=== PATIENT | male | born 1960 | race Caucasian/White ===

== ENCOUNTER → 2016-07-06 | Outpatient (CLI) | payer BC ==
[~2016-07-06] MED LIST: ATV/1 PO; DOCU-94 PO; GABA-112 PO; GLYC1SUP4 PR; IPRA1AER2 INH; NXM/40 PO; OXYC1TAB3 PO; SENN8.6T45 PO; TRIA3AER NAE
--- NOTE | 2016-07-06 15:38 | DIAGNOSTIC IMAGING REPORT ---
CHEST 2 VIEWS ROUTINE CLINICAL HISTORY: Persistent fatigue COMPARISON STUDY: 06/18/2013 FINDINGS: The cardiac and sternal contours remain stable. There is no focal pulmonary consolidation. There is no failure. There are no pleural effusions. There are surgical clips within left upper quadrant. There is a pectus excavatum deformity.[ IMPRESSION: No active disease in the chest. Electronically signed by: Emile Mota M.D. 07/06/2016 3:37 PM Dictated Date/Time: 07/06/2016 3:33 PM
[2016-07-06 17:21] LABS: BASO % 0.8 %; BASO ABS # 0.05 K/uL (0-0.2); COMPLETE YES; EOS % 3.3 %; HEMATOCRIT 43.6 % (42-52); LYMPH % 48.5 %; LYMPH ABS # 3.19 K/uL (1.2-3.4); MEAN CELL VOLUME 91.6 fL (80-100); MEAN CORPUSCULAR HEMOGLOBIN 31.1 pg (25-34); MEAN CORPUSCULAR HGB CONC 33.9 g/dl (32-36); MEAN PLATELET VOLUME 10.5 fL (7.4-10.4); MONO % 8.7 %; NEUT % 38.7 %; PLATELET COUNT 349 K/uL (130-400); RED BLOOD COUNT 4.76 M/uL (4.7-6.1); WHITE BLOOD COUNT 6.58 K/uL (4.8-10.8)
[2016-07-06 18:17] LABS: LYME DISEASE AB IGG NEG (NEG); LYME DISEASE AB IGM NEG (NEG)
[2016-07-06 18:24] LABS: ALT/SGPT 32 U/L (12-78); BLOOD UREA NITROGEN 19 mg/dl (7-18); BUN/CREATININE RATIO 19.8 (10-20); CARBON DIOXIDE 27 mmol/L (21-32); CHLORIDE 105 mmol/L (98-107); CREATININE 0.94 mg/dl (0.60-1.40); GLUCOSE 94 mg/dl (70-99); POTASSIUM 3.9 mmol/L (3.5-5.1); SODIUM 143 mmol/L (136-145)
[2016-07-06 18:34] LABS: ALB/GLOB RATIO 1.3 (0.9-2); ALKALINE PHOSPHATASE 63 U/L (45-117); AST/SGOT 22 U/L (15-37)
--- NOTE | 2016-07-12 11:00 | CODING QUERY MEDICAL NECESSITY ---
CQSUPPORTING DIAGNOSIS NEEDED A supporting diagnosis is required for the test/procedure performed on this patient in order for us to be reimbursed by the patient's insurance. Please provide a supporting diagnosis for the following test/procedure listed below next to the test name along with your signature. *If there is no additional diagnosis for this patient that would support the following test/procedure please document that below next to the test/procedure. Test(s)/Procedure(s) that require a supporting diagnosis: DOS 07/06/16 VITAMINS AND METABOLIC FUNCTION TEST-VITAMIN D AND VITAMIN B12 TEST WERE ORDERED BY ELLIE MCLEAN Provider Signature: Date: Thank you Jory Santoyo [facility] Information Management Once completed, please kindly fax back to [phone] For questions please call [phone]
== END | disposition home or self-care (01) ==
LOC: C.RADBC 15:09
PROVIDERS: ATTEND Internal Medicine Geriatric Medicine
DX: R53.83 Other fatigue (principal); Z11.59 Encounter for screening for other viral diseases

== ENCOUNTER → 2016-08-06 | Outpatient (CLI) | payer BC | END | disposition home or self-care (01) | LOC: C.RDSM 07:45 | PROVIDERS: ATTEND Physical Medicine & Rehabilitation Sports Medicine | DX: R52 Pain, unspecified (principal) ==

== ENCOUNTER → 2016-08-27 | Outpatient (CLI) | payer BC | END | disposition home or self-care (01) | LOC: C.LABSPEC 17:08 | PROVIDERS: ATTEND Physician Assistant Medical | DX: J03.90 Acute tonsillitis, unspecified (principal); J32.9 Chronic sinusitis, unspecified ==

== ENCOUNTER → 2016-12-28 | Outpatient (CLI) | payer BC ==
[2016-12-28 16:57] LABS: CHOLESTEROL/HDL RATIO 4.2; PROSTATE SPECIFIC ANTIGEN 0.873 ng/ml (0.000-4.000)
--- NOTE | 2017-01-02 08:52 | CODING QUERY MEDICAL NECESSITY ---
SUPPORTING DIAGNOSIS NEEDED Dr. Hilario, A supporting diagnosis is required for the test/procedure performed on this patient in order for us to be reimbursed by the patient's insurance. Please provide a supporting diagnosis for the following test/procedure listed below next to the test name along with your signature. *If there is no additional diagnosis for this patient that would support the following test/procedure please document that below next to the test/procedure. Test(s)/Procedure(s) that require a supporting diagnosis: * [id number] PSA DIAGNOSIS: DATE OF SERVICE: 12/28/16 Provider Signature: Date: Thank you Tae Mena [facility] Information Management Once completed, please kindly fax back to [phone] For questions please call [phone]
== END | disposition home or self-care (01) ==
LOC: C.LABBC 13:16
PROVIDERS: ATTEND Internal Medicine Geriatric Medicine
DX: Z00.00 Encounter for general adult medical examination without abnormal findings (principal); M19.90 Unspecified osteoarthritis, unspecified site; J45.909 Unspecified asthma, uncomplicated; M48.06 Spinal stenosis, lumbar region

== ENCOUNTER → 2017-01-02 | Outpatient (CLI) | payer BC ==
--- NOTE | 2017-01-02 09:41 | DIAGNOSTIC IMAGING REPORT ---
ABDOMEN COMPLETE (US) CLINICAL HISTORY: R10.9 Abdominal discomfort COMPARISON STUDY: CT scan dated 07/27/2014 FINDINGS: The pancreas appears normal as visualized. The gallbladder appears sonographically normal. The right kidney measures 10.5 cm in length. The left kidney measures 11.5 cm in length. No focal renal masses are visualized. There is no hydronephrosis. There is no evidence of abdominal aortic dilatation. There is no ductal dilatation. The common bile duct measures 3 mm. The patient is status post a prior splenectomy. No hepatic masses are visualized. There is an 18 mm nodule abutting the right lobe of the liver laterally. This was present on the prior CT scan, and likely represents a splenule. IMPRESSION: Stable 18 mm soft tissue nodule abutting the lateral aspect of the liver, possibly representing a splenule. No acute findings. Electronically signed by: Emile Mota M.D. 01/02/2017 9:39 AM Dictated Date/Time: 01/02/2017 9:36 AM
== END | disposition home or self-care (01) ==
LOC: C.ULTRBC 07:56
PROVIDERS: ATTEND Internal Medicine Geriatric Medicine
DX: R10.9 Unspecified abdominal pain (principal); K76.89 Other specified diseases of liver

== ENCOUNTER → 2017-06-17 | Outpatient (CLI) | payer BC, OTHER | END | disposition home or self-care (01) | LOC: C.RDSM 09:37 | PROVIDERS: ATTEND Physical Medicine & Rehabilitation Sports Medicine | DX: M17.0 Bilateral primary osteoarthritis of knee (principal) ==

== ENCOUNTER → 2017-09-11 | Outpatient (CLI) | payer OTHER ==
--- NOTE | 2017-09-11 14:10 | DIAGNOSTIC IMAGING REPORT ---
CHEST 2 VIEWS ROUTINE HISTORY: Cough. COMPARISON: Chest 07/06/2016. FINDINGS: The lungs are clear. Cardiac silhouette is normal in size. No pleural effusions. No pneumothorax. Surgical within the left upper quadrant. The lungs are mildly hyperexpanded. There is a pectus excavatum deformity. IMPRESSION: No significant change compared to the prior study. No acute process. Electronically signed by: Stan Wells M.D. 09/11/2017 2:09 PM Dictated Date/Time: 09/11/2017 2:07 PM
== END | disposition home or self-care (01) ==
LOC: C.RADBC 13:43
PROVIDERS: ATTEND Physician Assistant Medical
DX: R05 Cough (principal)

== ENCOUNTER → 2017-10-21 | Outpatient (CLI) | payer OTHER ==
[~2017-10-21] MED LIST changes: +OPTIRAY 320 IV PRN
--- NOTE | 2017-10-21 09:01 | DIAGNOSTIC IMAGING REPORT ---
CHEST CT WITH CONTRAST CT DOSE: 358.20 mGy.cm HISTORY: Asthma. Cough. TECHNIQUE: Multiaxial CT images of the chest were performed following the intravenous administration of contrast. A dose lowering technique was utilized adhering to the principles of ALARA. COMPARISON: Chest CT 08/13/2012. FINDINGS: No pneumothorax. No pleural effusions. The central airways are patent. Stable benign 3 mm nodule within the lingula on image 287. Linear scarlike density within the right middle lobe. Stable 4 moderate nodule within the right middle lobe on image 277. Therefore, this is considered to be benign. Small patchy groundglass density seen within the periphery of the left lower lobe and medial bases of the bilateral lower lobes. This could represent a pneumonia or atelectasis. No fractures within the visualized osseous structures. A 14 mm right thyroid nodule. No mediastinal or hilar lymphadenopathy. The visualized liver is unremarkable. Surgical clips within the left upper quadrant suggestive of prior splenectomy. There are multiple splenic nodules identified within the left upper quadrant consistent with splenosis. This remains unchanged. The adrenal glands are unremarkable. The thoracic aorta is normal in caliber. The heart is mildly enlarged. IMPRESSION: 1. Small patchy airspace opacities seen within the lower lobes as described above. This may represent pneumonia or atelectasis. 2. A 14 mm right thyroid nodule. Follow-up nonemergent thyroid ultrasound is recommended. 3. Stable subcentimeter pulmonary nodules. Therefore, these are considered to be benign. 4. Mild cardiomegaly. Electronically signed by: Stan Wells M.D. 10/21/2017 8:59 AM Dictated Date/Time: 10/21/2017 8:46 AM
== END | disposition home or self-care (01) ==
LOC: C.CTS 08:00
PROVIDERS: ATTEND Physician Assistant Medical
DX: J45.909 Unspecified asthma, uncomplicated (principal); R05 Cough; E04.1 Nontoxic single thyroid nodule

== ENCOUNTER → 2018-01-24 | Outpatient (CLI) | payer OTHER ==
[~2018-01-24] MED LIST changes: -OPTIRAY 320 IV PRN; +OXYC-90 PO; -OXYC1TAB3 PO
--- NOTE | 2018-01-24 10:01 | DIAGNOSTIC IMAGING REPORT ---
LUMBAR SPINE 2 OR 3 VIEWS CLINICAL HISTORY: 57 years-old Male presenting with BACK PAIN. TECHNIQUE: Frontal and lateral views of the lumbar spine were obtained. COMPARISON: 11/18/2015. FINDINGS: There has been interval posterior bilateral transpedicular screw and kirk fixation of L3-L5 with L4 laminectomy. Mild lucency around the L4 screws suggested. Mild levocurvature of the lumbar spine centered at L2-3. Vertebral bodies maintain normal height and alignment allowing for scoliosis. Intervertebral disc heights preserved with an interbody spacer at L4-5. No radiographic evidence of a compression deformity or subluxation. No osseous neural foraminal narrowing. No adjacent level degenerative change. Surgical clips project over the left upper quadrant. Moderate left stool burden. IMPRESSION: 1. Interval postsurgical changes of L3-L5 posterior lumbar fusion. Questionable radiolucency along the course of the L4 screws, which is only suggested on frontal view and not corroborated on lateral view and this may be artifactual. 2. L4 laminectomy. 3. No radiographic evidence of acute osseous injury or advanced degenerative change. Electronically signed by: Fidencio Curiel M.D. 01/24/2018 10:00 AM Dictated Date/Time: 01/24/2018 9:58 AM
== END | disposition home or self-care (01) ==
LOC: C.RDSM 09:37
PROVIDERS: ATTEND Orthopaedic Surgery
DX: M43.16 Spondylolisthesis, lumbar region (principal); M54.16 Radiculopathy, lumbar region; Z88.6 Allergy status to analgesic agent; Z88.1 Allergy status to other antibiotic agents

== ENCOUNTER 2019-04-22 06:21 | Inpatient (IN) ==
--- NOTE | 2019-04-16 15:40 | PAT Medication Instructions ---
Medication Instructions Date of Service April 16, 2019 Home Medications Medication Instructions Recorded cyclobenzaprine 5 mg tablet 5 mg PO TID PRN #30 tab 11/10/18 albuterol sulfate 90 mcg/actuation 2 puff INHALATION Q6H PRN #8.5 gm 12/24/18 aerosol inhaler meloxicam 7.5 mg tablet 7.5 mg PO DAILY PRN #30 tab 01/08/19 lorazepam 0.5 mg tablet 0.5 mg PO BID PRN #30 tab 01/22/19 atorvastatin 10 mg tablet 10 mg PO QPM #90 tab 03/16/19 tramadol 50 mg tablet 50 - 100 mg PO Q8H PRN #90 tab 04/13/19 Asmanex HFA 1 inh INHALATION BID Breo Ellipta 1 inh INHALATION QAM esomeprazole magnesium 40 mg PO QAM montelukast 10 mg PO HS multivitamin 1 tab PO BID tadalafil [Cialis] 2.5 mg PO DAILY PRN gabapentin 300 mg PO TID cyclobenzaprine 5 mg tablet 5 mg PO TID PRN albuterol sulfate 90 mcg/actuation aerosol inhaler 2 puff INHALATION Q6H PRN azelastine 0.15 % (205.5 mcg) nasal spray 1 spray INTRANASAL HS meloxicam 7.5 mg tablet 7.5 mg PO DAILY PRN lorazepam 0.5 mg tablet 0.5 mg PO BID PRN atorvastatin 10 mg tablet 10 mg PO QPM tramadol 50 mg tablet 50 - 100 mg PO Q8H PRN Garlique 1 cap PO DAILY ASK your surgeon for instructions meloxicam 7.5 mg tablet 7.5 mg PO DAILY PRN STOP taking 2 weeks before surgery (or as soon as possible if surgery is within 2 weeks) Garlique 1 cap PO DAILY DO NOT take the morning of surgery multivitamin 1 tab PO BID tadalafil [Cialis] 2.5 mg PO DAILY PRN cyclobenzaprine 5 mg tablet 5 mg PO TID PRN Take morning of surgery With a small sip of water, OTHERWISE NOTHING TO EAT OR DRINK AFTER MIDNIGHT: Asmanex HFA 1 inh INHALATION BID Breo Ellipta 1 inh INHALATION QAM esomeprazole magnesium 40 mg PO QAM gabapentin 300 mg PO TID albuterol sulfate 90 mcg/actuation aerosol inhaler 2 puff INHALATION Q6H PRN (use if needed; please bring with you to hospital day of surgery if possible) lorazepam 0.5 mg tablet 0.5 mg PO BID PRN (if needed) tramadol 50 mg tablet 50 - 100 mg PO Q8H PRN (okay to take up to 4 hours prior to surgery if needed) Take evening before surgery Asmanex HFA 1 inh INHALATION BID montelukast 10 mg PO HS multivitamin 1 tab PO BID tadalafil [Cialis] 2.5 mg PO DAILY PRN (if needed) gabapentin 300 mg PO TID cyclobenzaprine 5 mg tablet 5 mg PO TID PRN (if needed) albuterol sulfate 90 mcg/actuation aerosol inhaler 2 puff INHALATION Q6H PRN (if needed) azelastine 0.15 % (205.5 mcg) nasal spray 1 spray INTRANASAL HS lorazepam 0.5 mg tablet 0.5 mg PO BID PRN (if needed) atorvastatin 10 mg tablet 10 mg PO QPM tramadol 50 mg tablet 50 - 100 mg PO Q8H PRN (if needed) Other Notes If you have any questions please call us at [phone] or [phone] or [phone] or [phone]
--- NOTE | 2019-04-17 14:01 | Anesthesiology Consultation ---
Date of Service April 17, 2019 Assessment & Plan (1) Encounter for pre-operative examination: - Awaiting review preop testing (labs, EKG). - Awaiting surgeon-ordered PCP preop evaluation scheduled 04/20 ([facility]) - Label Tacker: 02/23/19: Remote hx of ASA reaction 40 years ago of SOB. "I do not believe that he has aspirin exacerbated respiratory disease, as he is able tolerate other NSAIDs. I would expect that in patients with AERD that this should react to all NSAIDs, as this is a class effect. Moving forward, I recommend we perform an aspirin challenge in our clinic. There is a good likelihood that he has lost the sensitivity given the amount of time that has elapsed , and he is tolerating other NSAIDs without any issues." Patient was asymptomatic during ASA allergy testing in the office 03/17/19 Chart Review Chart Review: Patient seen in Pre Admission Testing Teaching & Discussion Pre-Anesthesia Teaching/Discussion Notes: Instructed NPO after midnight before surgery,except medications with 15 cc of water. Medication instructions provided according to the PAT guidelines. History Surgery Operation Date: 04/22/19 08:55 Proposed Procedures p Right Total Knee Arthroplasty - Andrea Lugo MD Height/Weight Height: 6 ft 1.5 in Weight: 89 kg Allergies Allergy/AdvReac Type Severity Reaction Status Date / Time moxifloxacin Allergy SV SOB Verified 04/17/19 13:58 mold Allergy Mild sneezing, Verified 04/16/19 11:23 watery eyes tree and shrub pollen Allergy Mild sneezing, Verified 04/16/19 11:23 watery eyes dust Allergy Mild sneezing, Uncoded 04/16/19 11:23 watery eyes Medications Home Medications Medication Instructions Recorded Confirmed Last Taken Asmanex HFA 1 inh INHALATION BID 08/14/18 04/16/19 09/02/18 04:00 Breo Ellipta 1 inh INHALATION QAM 08/14/18 04/16/19 08/31/18 10:00 esomeprazole magnesium 40 mg PO QAM 08/14/18 04/16/19 09/01/18 05:00 montelukast 10 mg PO HS 08/14/18 04/16/19 08/30/18 19:00 multivitamin 1 tab PO BID 08/14/18 04/16/19 08/30/18 19:00 tadalafil [Cialis] 2.5 mg PO DAILY PRN 08/14/18 04/16/19 08/30/18 19:00 gabapentin 300 mg PO TID 09/02/18 04/16/19 08/30/18 19:00 cyclobenzaprine 5 mg tablet 5 mg PO TID PRN #30 tab 11/10/18 04/16/19 Unknown albuterol sulfate 90 mcg/actuation 2 puff INHALATION Q6H PRN #8.5 gm 12/24/18 04/16/19 Unknown aerosol inhaler azelastine 0.15 % (205.5 mcg) 1 spray INTRANASAL HS 12/25/18 04/16/19 Unknown nasal spray meloxicam 7.5 mg tablet 7.5 mg PO DAILY PRN #30 tab 01/08/19 04/16/19 Unknown lorazepam 0.5 mg tablet 0.5 mg PO BID PRN #30 tab 01/22/19 04/16/19 Unknown atorvastatin 10 mg tablet 10 mg PO QPM #90 tab 03/16/19 04/16/19 Unknown tramadol 50 mg tablet 50 - 100 mg PO Q8H PRN #90 tab 04/13/19 04/16/19 Unknown Garlique 1 cap PO DAILY 04/16/19 04/16/19 Unknown Past Medical History Medical History Anxiety Asthma stable Cervical stenosis of spine Chronic obstructive pulmonary disease stable Degenerative disc disease Frequent PVCs GERD (gastroesophageal reflux disease) controlled Gout Hepatitis B 1985 (s/p treatment)/subsequent testing negative History of diverticulitis of colon History of Hodgkin's lymphoma s/p chemo x 6 months (30+ years ago) Osteoarthritis Tremor occasional/left hand (workup with no significant findings per patient) Exercise / Class Metabolic Activity II 4-5 Yardwork/Stairs/Walk up hill (one flight of stairs (no chest pain/no sob)) Past Family History Family History Mother Family history of diabetes mellitus Family hx colonic polyps Diabetes Dementia Cancer Sister Family hx of colon cancer Family hx colonic polyps Asthma Colorectal cancer Brother Family hx colonic polyps Father Family hx colonic polyps Cancer Hypertension Other No family history of adverse response to anesthesia Past Surgical History Surgical History (Updated 04/17/19 @ 14:29 by Denise Patel) History of appendectomy History of arthroscopy of left knee History of arthroscopy of left shoulder History of arthroscopy of right knee History of arthroscopy of right shoulder History of back surgery synovial cyst removal History of colonoscopy History of endoscopic sinus surgery x2 History of esophagogastroduodenoscopy (EGD) History of lumbar spinal fusion L3-L5 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) History of sternectomy History of surgery left side lymph node removal from throat History of tooth extraction History of wisdom tooth extraction Past Anesthesia History No Hx of Anesthesia Complications (except post-op nausea x 1 (15+ years ago)) and No Family Hx of Anesthesia Complications History of PONV No Hx of Motion Sickness and History of PONV (post-op nausea x 1 (15+ years ago)) Social History Smoking Status: Former smoker Do You Dip or Chew Tobacco: No Smoking End Date: Quit 31 YEARS AGO Hx Alcohol Use: No (No ETOH x 31 years) Hx Substance Use: No substance use type: does not use Review of Systems Reflux controlled. Patient denies chest pain, shortness of breath, dyspnea on exertion, cough, wheezing. Physical Exam Vital Signs VITALS BP 103/64 (per patient, BP typically low-normal range) P 57 TEMP 98.2 SP02 95%RA RESP 16 PHYSICAL Full neck and c-spine range of motion (mild pain with extension). Full TMJ range of motion. TMD 2.5 finger breaths Mallampati Score 2 Dentition: intact, crowns several on molars, implants on molars Lungs: clear throughout to auscultation Cardiac: regular rate and rhythm, distant heart sounds Spine: normal Carotid arteries: negative bruit Extremities: no edema Testing Chest X-Ray Date: 10/14/18 Mild cardiomegaly. Hyperinflation. An underlying obstructive lung disease is presumed. No superimposed infiltrate to suggest pneumonia. Pulmonary Function Test Date: 03/17/19 FVC 4.59, 87% predicted. FEV1 3.69, 92% predicted. FEV1/FVC ratio 76%. Normal FEV1 without any evidence of obstruction.
[2019-04-17 16:03] LABS: Appearance Urine Clear (Clear); Basophils # (auto) 0.05 K/uL (0-0.2); Basophils % (auto) 0.7 %; Bilirubin Urine Negative (Negative); Blood Urine Negative (Negative); Color Urine Yellow; Eosinophils % (auto) 1.5 %; Glucose Urine UA Negative (Negative); Hematocrit (blood only) 44.5 % (42-52); Hemoglobin 15.3 g/dL (14.0-18.0); Immature Granulocytes # (auto) 0.01 K/uL (0.00-0.02); Immature Granulocytes % (auto) 0.1 %; Ketones Urine Negative (Negative); Leukocyte Esterase Urine Negative (Negative); Lymphocytes # (auto) 2.26 K/uL (1.2-3.4); Mean Corpuscular Hemoglobin 32.6 pg (25-34); Mean Corpuscular Hgb Conc 34.4 g/dL (32-36); Mean Corpuscular Volume 94.9 fL (80-100); Mean Platelet Volume 9.8 fL (7.4-10.4); Monocytes # (auto) 0.64 K/uL (0.11-0.59); Monocytes % (auto) 9.4 %; Neutrophils # (auto) 3.78 K/uL (1.4-6.5); Neutrophils % (auto) 55.3 %; Nitrite Urine Negative (Negative); Platelet Count 298 K/uL (130-400); Protein Urine Negative (Negative); RDW Coefficient of Variation 13.4 % (11.5-14.5); RDW Standard Deviation 46.8 fL (36.4-46.3); Red Blood Count 4.69 M/uL (4.7-6.1); Specific Gravity Urine 1.017 (1.000-1.030); Urobilinogen Urine Negative (Negative); White Blood Count 6.84 K/uL (4.8-10.8); pH Urine 5.5 (4.5-7.5)
[2019-04-17 16:11] LABS: Partial Thromboplastin Ratio 0.9; Partial Thromboplastin Time 24.6 Seconds (21.0-31.0); Prothrombin Time 10.7 Seconds (9.0-12.0)
[2019-04-17 16:15] LABS: BUN Creatinine Ratio 15.9 (10-20); Calcium 8.8 mg/dl (8.5-10.1); Creatinine Clr Calc Pharmacy 85.2 ml/min; Est GFR (African American) 87.6; Est GFR (Non-African American) 75.6; Potassium 4.3 mmol/L (3.5-5.1)
[~2019-04-22 06:21] MED LIST changes: -ATV/1 PO; +CEFAZOLIN 2000MG 2,000 MG/15 ML SYR IV SCH; -DOCU-94 PO; -GABA-112 PO; -GLYC1SUP4 PR; -IPRA1AER2 INH; +LR 500ML BOLUS, THEN 15ML/HR IV SCH; +LR 60ML/HR IV SCH; -NXM/40 PO; -OXYC-90 PO; +ROPIVACAINE 0.5% HCL/PF 150 MG, BUPIVACAINE 0.5% MPF 30 ML, EPINEPHrine 0.15 MG, Ketoro... INFIL SCH; -SENN8.6T45 PO; +TRANEXAMIC ACID 1,000 MG in 0.9 % SODIUM CHLORIDE 100 ML IV SCH; -TRIA3AER NAE
--- NOTE | 2019-04-22 06:30 | History & Physical Bridge Note ---
Date of Service April 22, 2019 History & Physical Bridge Note I have examined the patient, reviewed the History & Physical and in the interval since the performance of the History & Physical I have noted the following changes of clinical significance:consent obtained. no changes noted
[2019-04-22] MEDS ORDERED: BUPIVACAINE 0.5 % 5 MG/1 ML PF 10ML VIAL ONE (06:43)
[2019-04-22] MEDS ORDERED: BUPIVACAINE/EPINEPHRINE 0.25% 1:200,000 30 ML VIAL ONE (06:44)
[2019-04-22] MEDS ORDERED: DEXAMETHASONE SOD INJ 4 MG/ML VIAL ONE (06:44)
[2019-04-22] MEDS ORDERED: MIDAZOLAM HCL 1 MG/ML 2ML VIAL ONE (07:31)
[2019-04-22] MEDS ORDERED: fentaNYL citrate 100 MCG/2 ML VIAL ONE (07:47)
[2019-04-22] MEDS ORDERED: LIDOCAINE HCL 2% 2 ML VIAL/AMP(20MG/ML) INFIL ONE (08:29)
[2019-04-22] MEDS ORDERED: PROPOFOL IV EMULSION 10 MG/ML 20 ML VIAL IV ONE (08:29)
[2019-04-22] MEDS ORDERED: ORTHO JOINT ANESTHETIC ONE (08:39)
[2019-04-22] MEDS ORDERED: ONDANSETRON INJ 2 MG/ML 2 ML VIAL IV PRN ×2 (09:12→11:42)
[2019-04-22] MEDS ORDERED: fentaNYL citrate 100 MCG/2 ML VIAL IV PRN (09:12)
[2019-04-22] MEDS ORDERED: ePHEDrine sulfate 50 MG/ML AMP IV PRN (09:12)
[2019-04-22] MEDS ORDERED: ATROPINE SULFATE 0.1 MG/ML 10ML SYR IV PRN (09:12)
[2019-04-22] MEDS ORDERED: EPINEPHrine INJ 1 MG/ML AMP ONE (09:52)
[2019-04-22] MEDS: BUPIVACAINE 0.5 % 5 MG/1 ML MPF 30ML VIAL ONE ×2 (09:59→10:03)
--- NOTE | 2019-04-22 10:29 | Post Operative Brief Note ---
Immediate Post Op Note v1 Date of Surgery April 22, 2019 Pre & Post Diagnosis Operation Date: 04/22/19 08:50 Pre-Op Diagnosis: Right Knee End-Stage Degenerative Joint Disease Post-Op Diagnosis: Right Knee End-Stage Degenerative Joint Disease I identified the patient and participated in the time-out.: Yes Procedure Operation Date: 04/22/19 08:50 Actual Procedures p Right Total Knee Arthroplasty(Right) - Andrea Lugo MD Surgeon Andrea Lugo MD Engineer [email or web address] Estimated Blood Loss 25 Findings Consistent with Post-Op Diagnosis
--- NOTE | 2019-04-22 10:29 | Post Operative Brief Note ---
Immediate Post Op Note v1 Date of Surgery April 22, 2019 Pre & Post Diagnosis Operation Date: 04/22/19 08:50 Pre-Op Diagnosis: Right Knee End-Stage Degenerative Joint Disease Post-Op Diagnosis: Right Knee End-Stage Degenerative Joint Disease I identified the patient and participated in the time-out.: Yes Procedure Operation Date: 04/22/19 08:50 Actual Procedures p Right Total Knee Arthroplasty(Right) - Andrea Lugo MD Surgeon Andrea Lugo MD Statistical [email or web address] Estimated Blood Loss 25 Findings Consistent with Post-Op Diagnosis
--- NOTE | 2019-04-22 10:39 | Operative Report ---
Post Operative Report Pre & Post Diagnosis Operation Date: 04/22/19 08:50 Pre-Op Diagnosis: Right Knee End-Stage Degenerative Joint Disease Post-Op Diagnosis: Right Knee End-Stage Degenerative Joint Disease I identified the patient and participated in the time-out.: Yes Procedure Operation Date: 04/22/19 08:50 Actual Procedures p Right Total Knee Arthroplasty(Right) - Andrea Lugo MD Surgeon LEIGHA Lugo MD Customer Engineer [employer] Estimated Blood Loss 25 Findings Consistent with Post-Op Diagnosis Specimens see operative report Drains none Complications none Disposition Accompanied Patient To Recovery: Yes Disposition: Recovery Room Indications This 58-year-old white male presented to the office with complaints of intractable right knee pain. He had tried conservative measures for years, including cortisone injections, Visco supplementation injections, activity modification, oral NSAIDs, and oral pain medication. Preoperative imaging was obtained. He elected to proceed with surgical intervention after being educated about potential risks and outcomes. Description of Procedure Patient was administered a spinal anesthetic and then taken to the operating room where he was given sedation. He was prepped and draped in the usual sterile fashion. Please see Dr. Lugo's operative report for specifics of the procedure. I was present for the entire case from initial patient positioning through final wound closure. Assistance was provided in tissue retraction, hemostasis, trial implant placement, final implant placement, and final wound closure. Patient was taken to the recovery room in satisfactory condition. I attest to the content of the Intraoperative Record and any orders documented therein. Any exceptions are noted below.
--- NOTE | 2019-04-22 11:22 | Progress Note ---
DATE: 04/22/2019 SUBJECTIVE: Status post right total knee replacement. The patient is doing well, has no major issues. He denies any chest pain, shortness of breath, fever, chills, nausea, vomiting or headache. He is seen in the recovery room. OBJECTIVE: Vital signs are stable, he is afebrile. Neurovascular check is actually quite good. He can do knee extension. He can do ankle dorsiflexion and plantar flexion. Still has some tingling based on the spinal. Wound dressing is clean, dry and intact. Postop x-rays look excellent. ASSESSMENT: Doing well. Continue postoperative care pathway. Discharge tomorrow.
--- NOTE | 2019-04-22 11:24 | Anesthesiology Progress Note ---
Date of Service April 22, 2019 Anesthesia Post Procedure Vital Signs Vital Signs: Temp Pulse Pulse Resp BP BP Pulse Ox 04/22/19 11:15 36.6 C 60 14 99/83 L 99 04/22/19 11:05 60 14 120/74 99 04/22/19 10:55 68 14 114/77 99 04/22/19 10:45 73 14 116/77 97 04/22/19 10:37 36.2 C L 81 14 119/75 95 04/22/19 07:20 36.5 C 71 20 96/77 L 95 Pain Intensity Right Knee: Pain Intensity: 6 Transfer of Care Handoff Completed per policy Notes Mental Status: alert / awake / arousable Patient Amnestic to Procedure: Yes Nausea / Vomiting: adequately controlled Pain: adequately controlled Airway Patency, RR, SpO2: stable & adequate BP & HR: stable & adequate Hydration State: stable & adequate Neuraxial Anesthesia: was administered and sensory block is resolving Anesthetic Complications: no major complications apparent and Pt Satisfied with anesthetic care
--- NOTE | 2019-04-22 11:29 | Discharge Summary ---
CHIEF COMPLAINT: Right knee pain. HISTORY OF PRESENT ILLNESS: Underwent an elective right total knee replacement. Postop care pathway and course has been uneventful to date. He tolerated the procedure well. His postop x-rays look excellent. PAST MEDICAL HISTORY: Remarkable for asthma, COPD, anxiety, osteoarthritis, neck pain, GERD, history of hepatitis, Hodgkin lymphoma, history of lumbar back pain. FAMILY HISTORY: Remarkable for cancer, diabetes, heart disease. PAST SURGICAL HISTORY: Remarkable for knee surgery, shoulder arthroscopies, sinus surgery, back surgery, appendectomy, splenectomy, sternal surgery, lymph node biopsy. ALLERGIES: AVELOX. PREADMISSION MEDICATIONS: Advair Diskus, albuterol, Astelin, atorvastatin, Breo Ellipta inhaler, Celebrex, Cialis, flurbiprofen, fluconazole nasal spray, gabapentin, lorazepam, montelukast, multivitamin, Nasacort, Nexium, pseudoephedrine, tramadol, Voltaren topical gel. We will discontinue all anti-inflammatories, be on Coumadin to keep INR 1.8-2.2 and use tramadol and Tylenol for pain. SOCIAL HISTORY: Reveals that he is employed at the [employer]. Single. No tobacco use. No alcohol use. REVIEW OF SYSTEMS: Noncontributory. HOSPITAL COURSE: Has been uneventful to date. X-rays look excellent. Plan is for PT, OT and potential discharge after case management sees tomorrow.
--- NOTE | 2019-04-22 11:29 | Operative Report ---
DATE OF OPERATION: 04/22/2019 SURGEON: Andrea uLgo MD SLICER MACHINE OPERATOR: Remberto Toure PA-C. No resident or fellow available. PREOPERATIVE DIAGNOSIS: Osteoarthritis with varus and flexion deformity, right knee. POSTOPERATIVE DIAGNOSIS: Osteoarthritis with varus and flexion deformity, right knee. OPERATION PERFORMED: Cemented right total knee replacement. PERIOPERATIVE SITUATION: Medically cleared male with intractable knee pain, has failed conservative management for over a decade. At this point in time, wants to proceed with surgical treatment. He understands all the risks and consequences particularly with his age. SUMMARY OF IMPLANTS: Size 5 posterior cruciate substituting femur, size 5 mobile bearing tray, oval dome 3 peg patella size 41, tibial insert size 5 x 10, posterior cruciate substituting, rotating platform and 2 bags of [place] G cement. ESTIMATED BLOOD LOSS: 25 mL. CRYSTALLOID: Per anesthesia. PATHOLOGY: Pending on bone. DVT prophylaxis with Coumadin. DESCRIPTION OF PROCEDURE: The patient appropriately identified, site verified, consent verified. Antibiotics confirmed as being given. The right lower extremity was prepped and draped in usual routine fashion. Tourniquet inflated to 300 mmHg after exsanguination of limb with a rubber Esmarch bandage. Midline incision made. Parapatellar arthrotomy performed. Synovectomy completed. Grade 4-compartment extensively throughout the medial compartment of patellofemoral joint and lateral compartment was relatively well preserved. Releases performed to get into the joint nicely. The menisci remnants excised medially and meniscus excised laterally. Cruciates then resected. Tibia subluxated. Femur then resected 14 mm, tibia resected 4 mm, extension gap was excellent. Femur was sized between a 6 and a 5, was measured 6 cut 5, no notching occurred. Flexion gap checked. It was excellent. Anterior posterior condylar cuts made, then the flexion gap checked. It was good. Posterior capsule injected. The box cut then made. Size 5 fit well. Tibia then broached and reamed to a size 5 with a 10 mm spacer being very stable in all planes including mid range flexion. The patella tracked well. The patella was resected leaving 16 mm, 41 implant was then drilled and tracked well. Trial implants were then removed after the Orthomix was injected, also some Marcaine as there was a spillage on the back table with nursing. We used 20 mL of 0.5% Marcaine with epinephrine as we lost close to 41 mL of Orthomix. The wound was then irrigated copiously with Betadine and Pulsavac and the permanent cemented into position, tibia, femur and patella in that order. After 12 minutes, the tourniquet deflated. Minor bleeding points controlled with electrocautery. After 14 minutes knee flexed, no cement removal required. A trial spacer removed, permanent implants seated and reduced and then closed. They closed at 30 degrees of flexion with #2 Vicryl, 2-0 Vicryl and stainless steel clips. Appropriate dressing applied. The patient transferred to recovery room in satisfactory condition having tolerated the procedure well. I attest to the content of the Intraoperative Record and any orders documented therein. Any exception s are noted below.
--- NOTE | 2019-04-22 11:31 | XRay Report ---
XR knee RT 1 or 2V routine HISTORY: 58 years-old Male Surgical Post Op right knee total joint arthroplasty COMPARISON: Knee radiographs 01/05/2019 TECHNIQUE: 2 views of the right knee FINDINGS: Right knee total joint arthroplasty and patella resurfacing. Satisfactory alignment without acute fra cture or dislocation. Midline skin davis are noted along with expected postsurgical soft tissue swe lling and deep tissue air with surgical drainage catheter. IMPRESSION: Satisfactory alignment of the right knee total joint arthroplasty. The above report was generated using voice recognition software. It may contain grammatical, syntax o r spelling errors. Electronically signed by: Denis Paige M.D. 04/22/2019 11:29 AM
[2019-04-22] MEDS ORDERED: MAGNESIUM HYDROXIDE SUSP 30 ML UDC PO PRN (11:42)
[2019-04-22] MEDS ORDERED: METOCLOPRAMIDE HCL INJ 5 MG/ML 2 ML VIAL IV PRN (11:42)
[2019-04-22] MEDS ORDERED: HYDROmorphone INJ 0.5 MG/0.5 ML SYR IV PRN (11:42)
[2019-04-22] MEDS ORDERED: BISACODYL 10 MG SUPP PR PRN (11:42)
[2019-04-22] MEDS ORDERED: DiphenhydrAMINE HCL 50 MG/ML VIAL IV PRN (11:42)
[2019-04-22] MEDS ORDERED: NALOXONE HCL 0.4 MG/1 ML VIAL/CARP IV PRN (11:42)
[2019-04-22] MEDS ORDERED: ALUMINUM/MAGNESIUM SUSP 30 ML UDC PO PRN (11:42)
[2019-04-22] MEDS ORDERED: TAMSULOSIN HCL 0.4 MG CAP PO PRN (11:42)
[2019-04-22] MEDS ORDERED: LORazepam 0.5 MG TAB PO PRN (11:42)
[2019-04-22] MEDS ORDERED: SODIUM CHLORIDE 0.9% 1000ML 1,000 ML IV SCH (11:42)
[2019-04-22] MEDS ORDERED: ALBUTEROL HFA 8 GM INHALER INH PRN (12:30)
[2019-04-22] MEDS: ACETAMINOPHEN 500 MG TAB PO SCH ×2 (13:29→21:14)
[2019-04-22] MEDS: GABAPENTIN 300 MG CAP PO SCH ×2 (13:29→20:44)
[2019-04-22] MEDS: KETOROLAC 30 MG/ML VIAL IV SCH ×3 (13:30→23:30)
[2019-04-22] MEDS: ORTHO WARFARIN NOMOGRAM SCH (13:58)
[2019-04-22] MEDS ORDERED: WARFARIN SOD 5 MG TAB PO ONE (16:00)
[2019-04-22] MEDS ORDERED: TRANEXAMIC ACID 1,000 MG in 0.9 % SODIUM CHLORIDE 100 ML IV SCH (16:30)
[2019-04-22] MEDS: OXYCODONE HCL IR 5 MG TAB (IMMEDIATE RELEASE) PO PRN ×2 (16:31→20:46)
[2019-04-22] MEDS: FERROUS GLUCONATE 324 MG TAB PO SCH (16:34)
[2019-04-22] MEDS: ASCORBIC ACID 500 MG TAB PO SCH (16:34)
[2019-04-22] MEDS: CEFAZOLIN 2000MG 2,000 MG/15 ML SYR IV SCH (17:35)
[2019-04-22] MEDS: MOMETASONE FUROATE 14 PUFF/1 INHALER INH SCH (20:43)
[2019-04-22] MEDS: DOCUSATE SODIUM 100 MG CAP PO SCH (20:44)
[2019-04-22] MEDS ORDERED: MONTELUKAST SODIUM 10 MG TABLET PO SCH (21:00)
[2019-04-22] MEDS ORDERED: SENNA 8.6 MG TAB PO SCH (21:00)
[2019-04-22] MEDS ORDERED: ATORVASTATIN 10 MG TAB PO SCH (21:00)
[2019-04-23] MEDS: CEFAZOLIN 2000MG 2,000 MG/15 ML SYR IV SCH (02:00)
[2019-04-23] MEDS: OXYCODONE HCL IR 5 MG TAB (IMMEDIATE RELEASE) PO PRN ×2 (02:05→09:29)
[2019-04-23] MEDS: KETOROLAC 30 MG/ML VIAL IV SCH (05:42)
[2019-04-23] MEDS: ACETAMINOPHEN 500 MG TAB PO SCH (05:42)
[2019-04-23 06:39] LABS: Hematocrit (blood only) 39.4 % (42-52); Hemoglobin 13.7 g/dL (14.0-18.0); Mean Corpuscular Hemoglobin 32.7 pg (25-34); Mean Corpuscular Hgb Conc 34.8 g/dL (32-36); Mean Platelet Volume 9.6 fL (7.4-10.4); Platelet Count 279 K/uL (130-400); RDW Coefficient of Variation 13.6 % (11.5-14.5); RDW Standard Deviation 46.8 fL (36.4-46.3); Red Blood Count 4.19 M/uL (4.7-6.1); White Blood Count 16.28 K/uL (4.8-10.8)
[2019-04-23 06:48] LABS: Prothrombin Time 10.5 Seconds (9.0-12.0)
--- NOTE | 2019-04-23 07:06 | Progress Note ---
DATE: 04/22/2019 SUBJECTIVE: Status post right total knee replacement. The patient is sitting up in bed, doing well, has been to bathroom, is ambulating. He has no issues. Denies chest pain, shortness of breath, fever, chills, nausea, vomiting or headache. OBJECTIVE: Vital signs are stable. He is afebrile. Neurovascular check right lower extremity is normal. Calves nontender bilaterally. Wound dressing clean, dry and intact. Labs are good. INR pending. ASSESSMENT: Doing well. Discharge today. Give Coumadin before leaving.
[2019-04-23 07:17] LABS: BUN Creatinine Ratio 15.8 (10-20); Calcium 9.2 mg/dl (8.5-10.1); Creatinine Clr Calc Pharmacy 104.8 ml/min; Est GFR (African American) 109.5; Est GFR (Non-African American) 94.5; Potassium 4.2 mmol/L (3.5-5.1)
[2019-04-23] MEDS: GABAPENTIN 300 MG CAP PO SCH (07:42)
[2019-04-23] MEDS: DOCUSATE SODIUM 100 MG CAP PO SCH (07:42)
[2019-04-23] MEDS: ASCORBIC ACID 500 MG TAB PO SCH (07:42)
[2019-04-23] MEDS: FERROUS GLUCONATE 324 MG TAB PO SCH (07:42)
[2019-04-23] MEDS: MOMETASONE FUROATE 14 PUFF/1 INHALER INH SCH (07:42)
[2019-04-23] MEDS ORDERED: dexAMETHasone 10 MG in SYRINGE 0 ML IV SCH (08:00)
[2019-04-23] MEDS: ORTHO WARFARIN NOMOGRAM SCH (08:03)
--- NOTE | 2019-04-23 08:53 | Orthopedic Progress Note ---
Date of Service April 23, 2019 Assessment & Plan (1) S/P total knee arthroplasty: Dressing was changed today by me. This will remain in place until Saturday. It may then be changed as needed for soiling. Wound looks good. PT/OT this morning. Continue his knee immobilizer until tomorrow morning, then discontinue Discharge to home today with home health services Continue using his walker for ambulation Call the office with any other concerns Coumadin 4 mg daily. He will receive his dose for today prior to discharge. Subjective Patient is seen in his room this morning. He states he did very well overnight. He was able to ambulate in his room and back and forth to the bathroom. He denies any chest pain, shortness of breath, nausea, or vomiting. He did have some knee pain overnight that was controlled with Percocet. He had a brief episode of dizziness this morning while sitting up. It may have been related to his narcotic medication. His blood pressures have been fine. No other complaints. He feels ready to go home. Review of Systems Review of Systems: Unchanged from preop Physical Exam Physical Exam: General: Well-developed, well-nourished, middle-aged white male, in no acute distress. Laying on his bed. Alert and oriented. Skin: Dressings are dry and intact. Upon removal, davis are intact. Wound edges are well approximated. No drainage. Warm and dry with good turgor. No rashes. Expected postop ecchymosis and edema. No erythema. The patient is not diaphoretic. No abrasions. Musculoskeletal: Patient has intact motor function to the knee, ankle, and toes. He is able to set his quad and perform a straight leg raise. Neurologic: Gross sensation is intact across the right leg by soft touch. Peripheral pulses are 2+. Results & Data Vital Signs (Past 12 Hours) Vital Signs Temp Pulse Resp BP BP Pulse Ox 04/23/19 07:20 36.5 C 52 L 16 112/69 99 04/23/19 02:44 36.5 C 59 L 14 96/57 L 96 04/22/19 23:10 36.7 C 56 L 16 101/60 94 Laboratory Results WBCs this morning are 16.8. This is likely from surgery and his steroid dose. H&H are acceptable at 13.7 and 39.4. INR is 1.0.
[2019-04-23] MEDS ORDERED: MULTIVITAMIN TAB PO SCH (09:00)
[2019-04-23] MEDS ORDERED: PANTOprazole 40 MG TAB PO SCH (09:00)
[2019-04-23] MEDS ORDERED: FLUTICASONE PROPIONATE NA SPR 16 GM BTL SCH (09:00)
--- NOTE | 2019-04-23 10:55 | Anesthesiology Progress Note ---
Date of Service April 23, 2019 Anesthesia Post Procedure Vital Signs Vital Signs: Temp Pulse Pulse Pulse Resp BP BP 04/23/19 10:15 36.5 C 65 52 L 64 16 112/69 96/57 L 04/23/19 07:20 36.5 C 52 L 16 112/69 04/23/19 02:44 36.5 C 59 L 14 96/57 L 04/22/19 23:10 36.7 C 56 L 16 101/60 04/22/19 19:09 36.6 C 64 16 115/68 04/22/19 15:37 36.5 C 63 16 107/67 04/22/19 14:41 36.6 C 61 16 110/64 04/22/19 13:41 65 16 107/67 04/22/19 12:40 76 16 104/66 04/22/19 12:07 62 16 136/78 04/22/19 11:45 36.7 C 61 16 120/80 04/22/19 11:25 36.6 C 59 L 14 114/71 04/22/19 11:15 36.6 C 60 14 99/83 L 04/22/19 11:05 60 14 120/74 04/22/19 10:55 68 14 114/77 Pulse Ox 04/23/19 10:15 99 04/23/19 07:20 99 04/23/19 02:44 96 04/22/19 23:10 94 04/22/19 19:09 95 04/22/19 15:37 95 04/22/19 14:41 96 04/22/19 13:41 96 04/22/19 12:40 96 04/22/19 12:07 100 04/22/19 11:45 100 04/22/19 11:25 99 04/22/19 11:15 99 04/22/19 11:05 99 04/22/19 10:55 99 Pain Intensity Right Knee: Pain Intensity: 2 Notes Mental Status: alert / awake / arousable and participated in evaluation Nausea / Vomiting: adequately controlled Pain: adequately controlled Airway Patency, RR, SpO2: stable & adequate BP & HR: stable & adequate Hydration State: stable & adequate Neuraxial Anesthesia: sensory block resolved Anesthetic Complications: no major complications apparent
[2019-04-23] MEDS ORDERED: WARFARIN SOD 5 MG TAB PO ONE (12:00)
== END 2019-04-23 11:21 | disposition home health service (06) | DRG 470 ==
LOC: ASU 06:21 → 3E 10:46

== ENCOUNTER 2020-05-10 05:03 | Observation (INO) ==
--- NOTE | 2020-04-07 15:15 | PAT Medication Instructions ---
Medication Instructions Date of Service April 07, 2020 Home Medications Medication Instructions Recorded montelukast 10 mg tablet 10 mg PO HS #90 tab 05/18/19 tadalafil 5 mg tablet 5 mg PO DAILY PRN #6 tab 06/26/19 lorazepam 0.5 mg tablet 0.25 mg PO BID PRN #30 tab 07/21/19 cyclobenzaprine 5 mg tablet 5 mg PO TID PRN #30 tab 09/17/19 valacyclovir 1 gram tablet 2,000 mg PO Q12H PRN #4 tab 09/17/19 budesonide 180 mcg/actuation 1 puffs INH BID #1 inhaler 11/10/19 breath activated powder inhaler fluticasone propionate 50 1 sprays INTNAS BID #18.2 ml 12/21/19 mcg/actuation nasal spray,suspension tramadol 50 mg tablet 50 mg PO Q8H PRN #60 tab 03/17/20 atorvastatin 10 mg tablet 10 mg PO QPM #90 tab 03/21/20 albuterol sulfate 90 mcg/actuation 2 puff INHALATION Q6H PRN #8.5 gm 04/05/20 aerosol inhaler esomeprazole magnesium 40 mg PO QAM multivitamin 1 tab PO BID azelastine 0.15 % (205.5 mcg) nasal spray 1 spray INTRANASAL HS montelukast 10 mg tablet 10 mg PO HS tadalafil 5 mg tablet 5 mg PO DAILY PRN lorazepam 0.5 mg tablet 0.25 mg PO BID PRN cyclobenzaprine 5 mg tablet 5 mg PO TID PRN valacyclovir 1 gram tablet 2,000 mg PO Q12H PRN Breo Ellipta 1 inh INHALATION HS celecoxib [Celebrex] 100 mg PO BID gabapentin 400 mg PO TID budesonide 180 mcg/actuation breath activated powder inhaler 1 puffs INH BID fluticasone propionate 50 mcg/actuation nasal spray,suspension 1 sprays INTNAS BID glucosamine-chondroitin 250 mg-200 mg tablet 2 tab PO QAM budesonide 0.5 mg IRRIGATION BID tramadol 50 mg tablet 50 mg PO Q8H PRN atorvastatin 10 mg tablet 10 mg PO QPM albuterol sulfate 90 mcg/actuation aerosol inhaler 2 puff INHALATION Q6H PRN duloxetine [Cymbalta] 30 mg PO QAM ASK your surgeon for instructions celecoxib [Celebrex] 100 mg PO BID STOP taking 2 weeks before surgery (or as soon as possible if surgery is within 2 weeks) glucosamine-chondroitin 250 mg-200 mg tablet 2 tab PO QAM DO NOT take the morning of surgery multivitamin 1 tab PO BID tadalafil 5 mg tablet 5 mg PO DAILY PRN cyclobenzaprine 5 mg tablet 5 mg PO TID PRN Take morning of surgery With a small sip of water, OTHERWISE NOTHING TO EAT OR DRINK AFTER MIDNIGHT: esomeprazole magnesium 40 mg PO QAM lorazepam 0.5 mg tablet 0.25 mg PO BID PRN (if needed) valacyclovir 1 gram tablet 2,000 mg PO Q12H PRN (if needed) gabapentin 400 mg PO TID budesonide 180 mcg/actuation breath activated powder inhaler 1 puffs INH BID fluticasone propionate 50 mcg/actuation nasal spray,suspension 1 sprays INTNAS BID budesonide 0.5 mg IRRIGATION BID tramadol 50 mg tablet 50 mg PO Q8H PRN (okay to take up to 4 hours prior to surgery if needed) albuterol sulfate 90 mcg/actuation aerosol inhaler 2 puff INHALATION Q6H PRN (use if needed; please bring with you to hospital day of surgery if possible) duloxetine [Cymbalta] 30 mg PO QAM Take evening before surgery multivitamin 1 tab PO BID azelastine 0.15 % (205.5 mcg) nasal spray 1 spray INTRANASAL HS montelukast 10 mg tablet 10 mg PO HS tadalafil 5 mg tablet 5 mg PO DAILY PRN (if needed) lorazepam 0.5 mg tablet 0.25 mg PO BID PRN (if needed) cyclobenzaprine 5 mg tablet 5 mg PO TID PRN (if needed) valacyclovir 1 gram tablet 2,000 mg PO Q12H PRN (if needed) Breo Ellipta 1 inh INHALATION HS gabapentin 400 mg PO TID budesonide 180 mcg/actuation breath activated powder inhaler 1 puffs INH BID fluticasone propionate 50 mcg/actuation nasal spray,suspension 1 sprays INTNAS BID budesonide 0.5 mg IRRIGATION BID tramadol 50 mg tablet 50 mg PO Q8H PRN (if needed) atorvastatin 10 mg tablet 10 mg PO QPM albuterol sulfate 90 mcg/actuation aerosol inhaler 2 puff INHALATION Q6H PRN (if needed) Other Notes If you have any questions please call us at [phone] or [phone] or [phone] or [phone]
--- NOTE | 2020-04-08 11:20 | Anesthesiology Consultation ---
Date of Service April 08, 2020 Assessment & Plan (1) Encounter for pre-operative examination: COVID Status: As of 04/08 assessment, patient denies travel to endemic area, known exposure/sick contacts, or symptoms of COVID19. Patient instructed that they and their household members must follow strict social distancing guidelines, wear a mask in public and avoid travel for 14 days prior to surgery. Preoperative COVID19 testing to be completed prior to surgery per surgeon's arr angements (04/27). Patient made aware to self-isolate as much as possible between COVID testing and surgery. Will not be attending family thanksgiving. Chart Review Chart Review: Acceptable Risk for Surgery (pending surgeon ordered pcp clearance (nothing scheduled)) and Patient seen in Pre Admission Testing Teaching & Discussion Instructed NPO after midnight before surgery, except medications with 15 cc of water. Medication instructions provided according to the PAT guidelines. History Surgery Operation Date: 05/04/20 07:00 Proposed Procedures p Left Total Knee Arthroplasty - Andrea Lugo MD Height/Weight Height: 6 ft 1.5 in Weight: 95.4 kg Allergies Allergy/AdvReac Type Severity Reaction Status Date / Time moxifloxacin Allergy SV SOB Verified 04/07/20 12:34 house dust Allergy Mild sneezing, Verified 04/07/20 12:34 watery eyes mold Allergy Mild sneezing, Verified 04/07/20 12:34 watery eyes tree and shrub pollen Allergy Mild sneezing, Verified 04/07/20 12:34 watery eyes Medications Home Medications Medication Instructions Recorded Confirmed Last Taken esomeprazole magnesium 40 mg PO QAM 08/14/18 04/07/20 03/21/20 multivitamin 1 tab PO BID 08/14/18 04/07/20 03/20/20 azelastine 0.15 % (205.5 mcg) 1 spray INTRANASAL HS 12/25/18 04/07/20 03/20/20 nasal spray montelukast 10 mg tablet 10 mg PO HS #90 tab 05/18/19 04/07/20 03/20/20 tadalafil 5 mg tablet 5 mg PO DAILY PRN #6 tab 06/26/19 04/07/20 Unknown lorazepam 0.5 mg tablet 0.25 mg PO BID PRN #30 tab 07/21/19 04/07/20 Unknown cyclobenzaprine 5 mg tablet 5 mg PO TID PRN #30 tab 09/17/19 04/07/20 Unknown valacyclovir 1 gram tablet 2,000 mg PO Q12H PRN #4 tab 09/17/19 04/07/20 Unknown Breo Ellipta 1 inh INHALATION HS 10/09/19 04/07/20 03/20/20 celecoxib [Celebrex] 100 mg PO BID 10/09/19 04/07/20 03/21/20 gabapentin 400 mg PO TID 10/09/19 04/07/20 03/21/20 budesonide 180 mcg/actuation 1 puffs INH BID #1 inhaler 11/10/19 04/07/20 Unknown breath activated powder inhaler fluticasone propionate 50 1 sprays INTNAS BID #18.2 ml 12/21/19 04/07/20 Unknown mcg/actuation nasal spray,suspension glucosamine-chondroitin 250 mg-200 2 tab PO QAM tab 01/26/20 04/07/20 03/20/20 mg tablet budesonide 0.5 mg IRRIGATION BID 03/10/20 04/07/20 Unknown tramadol 50 mg tablet 50 mg PO Q8H PRN #60 tab 03/17/20 04/07/20 Unknown atorvastatin 10 mg tablet 10 mg PO QPM #90 tab 03/21/20 04/07/20 Unknown albuterol sulfate 90 mcg/actuation 2 puff INHALATION Q6H PRN #8.5 gm 04/05/20 04/07/20 Unknown aerosol inhaler duloxetine [Cymbalta] 30 mg PO QAM 04/06/20 04/07/20 Unknown Past Medical History Medical History Allergic rhinitis Anxiety Asthma "MILD" USED INHALER LAST WEEK. Normal PFTs 03/2019. Chronic sinusitis COPD (chronic obstructive pulmonary disease) Degenerative disc disease Erectile dysfunction Frequent PVCs Asymptomatic. GERD (gastroesophageal reflux disease) controlled Gout Hepatitis B 1985 (s/p treatment)/subsequent testing negative History of diverticulitis of colon History of Hodgkin's lymphoma s/p chemo x 6 months (30+ years ago) Osteoarthritis Solitary pulmonary nodule Spinal stenosis Cervical and lumbar Thyroid nodule Recent bx benign per patient. Tremor occasional/left hand (workup with no significant findings per patient) Vitamin D deficiency Exercise / Class Metabolic Activity 1 > 8 Run/Swim/Ski/Tennis (Pt is very active, at gym 5-6 days per week, treadmill, elliptical) Past Family History Family History Mother Diabetes Dementia Lung cancer Colonic polyp Sister Asthma Colorectal cancer Colonic polyp Brother Colonic polyp Father Hypertension Colonic polyp Ureter cancer Other No family history of adverse response to anesthesia Denies family history of Ovarian cancer Prostate cancer Breast cancer Past Surgical History Surgical History History of appendectomy History of arthroscopy of left knee History of arthroscopy of left shoulder History of arthroscopy of right knee History of arthroscopy of right shoulder History of back surgery synovial cyst removal History of colonoscopy History of endoscopic sinus surgery x2 History of esophagogastroduodenoscopy (EGD) History of lumbar spinal fusion L3-L5 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 History of surgery left side lymph node removal from throat History of tooth extraction History of wisdom tooth extraction S/P epidural steroid injection S/P total knee arthroplasty RT TKA Past Anesthesia History No Hx of Anesthesia Complications and No Family Hx of Anesthesia Complications History of PONV No Hx of PONV and No Hx of Motion Sickness Social History Smoking Status: Former smoker tobacco type: cigarettes Do You Dip or Chew Tobacco: No Smoking End Date: quit 31 yrs ago Hx Alcohol Use: No Hx Substance Use: No substance use type: does not use Review of Systems Pt denies any recent chest pain, shortness of breath, palpitations, cough, fever, URI, or uncontrolled acid reflux. Physical Exam Vital Signs BP: 112/71 P: 58bpm SPO2: 95% RA T: 97.8 F R: 16 ENMT Mouth: + dental restorations (4 crowns, 2 implants); no chipped teeth and no loose teeth Thyromental Distance: > or= 3.5 Finger Breadths Mallampati Class: I Neck + limited neck extension (pain with full extension) and + facial hair (very short [place]) Respiratory normal respiratory effort, lungs clear to auscultation + prolonged expiratory phase Cardiovascular RRR, no murmur, no edema Testing Laboratory Results 04/08/20 11:31 04/08/20 11:31 PT 10.4 Seconds (9.0-12.0) 04/08/20 11: INR 1.0 (0.9-1.1) 04/08/20 11: APTT 25.3 Seconds (21.0-31.0) 04/08/20 11:31 Urine Color Yellow 04/08/20 11:31 Urine Appearance Clear (Clear) 04/08/20 11:31 Urine pH 8.0 (4.5-7.5) H 04/08/20 11: Ur Specific [place] 1.013 (1.000-1.030) 04/08/20 11:31 Urine Protein Negative (Negative) 04/08/20 11:31 Urine Glucose (UA) Negative (Negative) 04/08/20 11: Urine Ketones Negative (Negative) 04/08/20 11:31 Urine Nitrite Negative (Negative) 04/08/20 11:31 Ur Leukocyte Esterase Negative (Negative) 04/08/20 11: Blood Type A Positive 04/08/20 11: Antibody Screen NEGATIVE 04/08/20 11: Electrocardiogram Date: 08/17/19 Sinus rhythm at 65 bpm with occasional PVCs. Possible left atrial enlargement. Incomplete right bundle branch block. Left anterior fascicular block. Possible anterior [place]. No change from 04/2019. Chest X-Ray Date: 04/08/20 Findings: + NAD
[2020-04-08 12:09] LABS: Basophils # (auto) 0.06 K/uL (0-0.2); Basophils % (auto) 0.9 %; Eosinophils # (auto) 0.16 K/uL (0-0.5); Eosinophils % (auto) 2.3 %; Hemoglobin 15.5 g/dL (14.0-18.0); Immature Granulocytes # (auto) 0.02 K/uL (0.00-0.02); Immature Granulocytes % (auto) 0.3 %; Lymphocytes # (auto) 2.54 K/uL (1.2-3.4); Lymphocytes % (auto) 36.9 %; Mean Corpuscular Hemoglobin 32.1 pg (25-34); Mean Corpuscular Hgb Conc 33.7 g/dL (32-36); Mean Corpuscular Volume 95.2 fL (80-100); Mean Platelet Volume 9.9 fL (7.4-10.4); Monocytes # (auto) 0.62 K/uL (0.11-0.59); Neutrophils # (auto) 3.49 K/uL (1.4-6.5); Neutrophils % (auto) 50.6 %; Platelet Count 332 K/uL (130-400); RDW Coefficient of Variation 13.6 % (11.5-14.5); RDW Standard Deviation 47.2 fL (36.4-46.3); Red Blood Count 4.83 M/uL (4.7-6.1); White Blood Count 6.89 K/uL (4.8-10.8)
[2020-04-08 12:10] LABS: Appearance Urine Clear (Clear); Bilirubin Urine Negative (Negative); Blood Urine Negative (Negative); Color Urine Yellow; Glucose Urine UA Negative (Negative); Ketones Urine Negative (Negative); Leukocyte Esterase Urine Negative (Negative); Nitrite Urine Negative (Negative); Protein Urine Negative (Negative); Specific Gravity Urine 1.013 (1.000-1.030); Urobilinogen Urine Negative (Negative)
[2020-04-08 12:18] LABS: BUN Creatinine Ratio 17.8 (10-20); Calcium 9.5 mg/dl (8.5-10.1); Creatinine Clr Calc Pharmacy 105.9 ml/min; Est GFR (African American) 109.8; Est GFR (Non-African American) 94.7; Potassium 4.3 mmol/L (3.5-5.1)
[2020-04-08 12:22] LABS: Partial Thromboplastin Ratio 0.9; Partial Thromboplastin Time 25.3 Seconds (21.0-31.0); Prothrombin Time 10.4 Seconds (9.0-12.0)
--- NOTE | 2020-04-08 12:34 | XRay Report ---
XR chest Pre-admission PA/Lat HISTORY: Preop. COMPARISON: Chest 10/14/2018. FINDINGS: The cardiac silhouette remains mildly enlarged. This is likely accentuated by the pectus ex cavatum deformity. The lungs are clear. No pleural effusions. No pneumothorax. IMPRESSION: No significant change compared to the prior study. No acute process. ACT 112: Negative or not required by law. Electronically signed by: Stan Wells M.D. 04/08/2020 12:32 PM
--- NOTE | 2020-04-13 17:17 | History & Physical Report ---
Date of Service April 13, 2020 Assessment & Plan (1) Left knee DJD: Postoperative prescriptions for Percocet and Coumadin will be provided at discharge from the hospital. Anticipate discharge to home with home health services. He already has a walker. Preoperative lab work, EKG, and chest x-ray have been ordered for PAT today. He has an appointment to see his PCP next week for medical clearance. The patient is aware of the COVID-19 risks associated with surgery. He is currently asymptomatic of any COVID-19 symptoms. He will obtain nasal swab testing prior to surgery. PDMP was checked and there are no concerning findings. History of Present Illness Chief Complaint: Left knee pain Primary Care Provider: Edinson Tavarez DO This 59-year-old white male presents today for a history of left knee pain for the last 6-9 months. He is scheduled to undergo a left knee total knee arthroplasty on 05/04/2020. The knee pain has become worse with time. Pain is now affecting his ADLs. He previously had a right total knee arthroplasty 04/22/2019. He has done very well with that. He elects to proceed with the same on the left. Preoperative imaging has been obtained. He denies any numbness, tingling, catching or locking in the left knee. He does note crepitus with motion. Pain is worse with weightbearing. Allergies Allergy/AdvReac Type Severity Reaction Status Date / Time moxifloxacin Allergy SV SOB Verified 04/13/20 10:01 house dust Allergy Mild sneezing, Verified 04/13/20 10:01 watery eyes mold Allergy Mild sneezing, Verified 04/13/20 10:01 watery eyes tree and shrub pollen Allergy Mild sneezing, Verified 04/13/20 10:01 watery eyes Home Medications Home Medications Medication Instructions Recorded Confirmed Type esomeprazole magnesium 40 mg PO QAM 08/14/18 04/13/20 History multivitamin 1 tab PO BID 08/14/18 04/13/20 History azelastine 0.15 % (205.5 mcg) 1 spray INTRANASAL HS 12/25/18 04/13/20 History nasal spray montelukast 10 mg tablet 10 mg PO HS #90 tab 05/18/19 04/13/20 Rx tadalafil 5 mg tablet 5 mg PO DAILY PRN #6 tab 06/26/19 04/13/20 Rx lorazepam 0.5 mg tablet 0.25 mg PO BID PRN #30 tab 07/21/19 04/13/20 Rx cyclobenzaprine 5 mg tablet 5 mg PO TID PRN #30 tab 09/17/19 04/13/20 Rx valacyclovir 1 gram tablet 2,000 mg PO Q12H PRN #4 tab 09/17/19 04/13/20 Rx Breo Ellipta 1 inh INHALATION HS 10/09/19 04/13/20 History celecoxib [Celebrex] 100 mg PO BID 10/09/19 04/13/20 History gabapentin 400 mg PO TID 10/09/19 04/13/20 History budesonide 180 mcg/actuation 1 puffs INH BID #1 inhaler 11/10/19 04/13/20 Rx breath activated powder inhaler fluticasone propionate 50 1 sprays INTNAS BID #18.2 ml 12/21/19 04/13/20 Rx mcg/actuation nasal spray,suspension glucosamine-chondroitin 250 mg-200 2 tab PO QAM tab 01/26/20 04/13/20 History mg tablet budesonide 0.5 mg IRRIGATION BID 03/10/20 04/13/20 History tramadol 50 mg tablet 50 mg PO Q8H PRN #60 tab 03/17/20 04/13/20 Rx atorvastatin 10 mg tablet 10 mg PO QPM #90 tab 03/21/20 04/13/20 Rx albuterol sulfate 90 mcg/actuation 2 puff INHALATION Q6H PRN #8.5 gm 04/05/20 04/13/20 Rx aerosol inhaler duloxetine [Cymbalta] 30 mg PO QAM 04/06/20 04/13/20 History Past Med/Surg History Medical History Allergic rhinitis Anxiety Asthma "MILD" USED INHALER LAST WEEK. Normal PFTs 03/2019. Chronic sinusitis COPD (chronic obstructive pulmonary disease) Degenerative disc disease Erectile dysfunction Frequent PVCs Asymptomatic. GERD (gastroesophageal reflux disease) controlled Gout Hepatitis B 1985 (s/p treatment)/subsequent testing negative History of diverticulitis of colon History of Hodgkin's lymphoma s/p chemo x 6 months (30+ years ago) Osteoarthritis Solitary pulmonary nodule Spinal stenosis Cervical and lumbar Thyroid nodule Recent bx benign per patient. 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 History of surgery left side lymph node removal from throat History of tooth extraction History of wisdom tooth extraction S/P epidural steroid injection S/P total knee arthroplasty RT TKA Family History Mother Diabetes Dementia Lung cancer Colonic polyp Sister Asthma Colorectal cancer Colonic polyp Brother Colonic polyp Father Hypertension Colonic polyp Ureter cancer Other No family history of adverse response to anesthesia Denies family history of Ovarian cancer Prostate cancer Breast cancer Social History Smoking Status: Former smoker Age Started Using Tobacco: 14; Age Quit Using Tobacco: 28; packs per day: 2; Years Smoked: 14; Number of Years Since Quit: 30; Second Hand Exposure: No; Hx Alcohol Use: No Hx Substance Use: No Preferred Language: Mongolian Communication Ability: Effective Visual Impairment: Limited Hearing Ability: Normal Software Engineering Manager Required: No Beliefs That Will Affect Care: None marital status: Single Current Living Situation: Alone current occupational status: employed Feels Safe at Home: Yes Childhood Exposure to Second-Hand Smoke: Yes caffeine: Yes Dental Care, Regularly: Yes Physical Activity Frequency: 5-6 Times per Week Seatbelt Use: always Sunscreen Use: Yes Assistive Devices: Glasses Review of Systems Review of Systems: All systems reviewed & are unremarkable except as noted in HPI & below A total of 10 systems were reviewed. Physical Exam Physical Exam: Vitals: Height 184.5 cm, weight 96.5 kilograms, BMI 28.4, temperature 36.4 oral, BP 100/72, pulse is 55, O2 sat 97% on room air. GENERAL: Well-developed, well-nourished middle-aged white male in no acute distress. Sitting in a chair. Alert and oriented. Skin: Warm and dry with good turgor. No rashes or lesions. No ecchymosis or erythema. Well-healed surgical scars on both knees. No intraarticular effusions. HEENT: Normocephalic, atraumatic. Eyes: PERRLA, EOMI. Nares and oropharynx exams deferred due to COVID precautions. Heart: RRR, no MGR. Two PVCs were noted. Lungs: Clear to auscultation bilaterally, no crackles, rhonchi or wheezing, good air movement. Abdomen: Bowel sounds present x4, soft, nontender. No organomegaly. No masses. Musculoskeletal: Left knee evaluation reveals a varus alignment. No intraarticular effusion. He has full terminal extension. Flexion to greater than 120 degrees. Strength is 5/5 with excellent quad tone. Stable collateral ligaments. No defect in the patellar tendon or quadriceps tendon. He has focal discomfort with palpation over the peripatellar and medial joint line areas. No pain laterally. Crepitus is palpable with motion. Ambulates with a normal gait. Neurologic: Gross sensation is intact across both lower extremities by soft touch. Peripheral pulses are 2+. Results & Data Results & Data ([facility]) Diagnostic Findings Radiographic imaging previously obtained shows endstage DJD of the medial compartment of the left knee. He also has significant degenerative changes in the patellofemoral compartment. Periarticular osteophytes, subchondral sclerosis, and joint space narrowing are all present.
[~2020-05-10 05:03] MED LIST changes: -CEFAZOLIN 2000MG 2,000 MG/15 ML SYR IV SCH; +TRANEXAMIC ACID 1,000 MG **IV Pre-op IV SCH; -TRANEXAMIC ACID 1,000 MG in 0.9 % SODIUM CHLORIDE 100 ML IV SCH; +ceFAZolin 2000MG 2,000 MG/15 ML SYR IV SCH
[2020-05-10] MEDS ORDERED: TRANEXAMIC ACID 1,000 MG **IV Pre-op IV SCH (06:00)
[2020-05-10] MEDS ORDERED: LR 60ML/HR IV SCH (06:00)
[2020-05-10] MEDS ORDERED: ceFAZolin 2000MG 2,000 MG/15 ML SYR IV SCH (06:00)
[2020-05-10] MEDS ORDERED: LR 500ML BOLUS, THEN 15ML/HR IV SCH (06:00)
[2020-05-10] MEDS ORDERED: ROPIVACAINE 0.5% HCL/PF 150 MG, BUPIVACAINE 0.75% MPF 20 ML, EPINEPHrine 0.15 MG, Ketor... INFIL SCH (06:00)
[2020-05-10] MEDS ORDERED: BUPIVACAINE 0.5 % 5 MG/1 ML PF 10ML VIAL ONE (06:17)
[2020-05-10] MEDS ORDERED: BUPIVACAINE 0.25% 30 ML VIAL ONE (06:19)
--- NOTE | 2020-05-10 06:25 | History & Physical Bridge Note ---
Date of Service May 10, 2020 History & Physical Bridge Note I have examined the patient, reviewed the History & Physical and in the interval since the performance of the History & Physical I have noted the following changes of clinical significance:consent obtained/site verified/covid screen negative.no changes noted
[2020-05-10] MEDS ORDERED: MIDAZOLAM HCL 1 MG/ML 2ML VIAL ONE ×2 (06:34→06:37)
[2020-05-10] MEDS ORDERED: fentaNYL citrate 100 MCG/2 ML VIAL ONE (06:34)
[2020-05-10] MEDS ORDERED: ORTHO JOINT ANESTHETIC ONE (06:43)
[2020-05-10] MEDS ORDERED: ATROPINE SULFATE 0.1 MG/ML 10ML SYR IV PRN (06:49)
[2020-05-10] MEDS ORDERED: fentaNYL citrate 100 MCG/2 ML VIAL IV PRN (06:49)
[2020-05-10] MEDS ORDERED: ePHEDrine sulfate 50 MG/ML AMP IV PRN (06:49)
[2020-05-10] MEDS ORDERED: ONDANSETRON INJ 2 MG/ML 2 ML VIAL IV PRN ×2 (06:49→09:52)
[2020-05-10] MEDS ORDERED: ONDANSETRON INJ 2 MG/ML 2 ML VIAL ONE (07:13)
[2020-05-10] MEDS ORDERED: PROPOFOL IV EMULSION 10 MG/ML 20 ML VIAL IV ONE (07:13)
[2020-05-10] MEDS ORDERED: LIDOCAINE HCL 2% 2 ML VIAL/AMP(20MG/ML) INFIL ONE (07:13)
--- NOTE | 2020-05-10 08:22 | Post Operative Brief Note ---
Immediate Post Op Note v1 Date of Surgery May 10, 2020 Pre & Post Diagnosis Operation Date: 05/10/20 07:00 Pre-Op Diagnosis: Left Knee Degenerative Joint Disease Post-Op Diagnosis: Left Knee Degenerative Joint Disease I identified the patient and participated in the time-out.: Yes Procedure Operation Date: 05/10/20 07:00 Actual Procedures p Left Total Knee Arthroplasty(Left) - Andrea Lugo MD Surgeon Andrea Lugo MD Networking Technology Instructor chago/alvaro Estimated Blood Loss 75 Findings Consistent with Post-Op Diagnosis
--- NOTE | 2020-05-10 08:33 | Operative Report ---
Post Operative Report Pre & Post Diagnosis Operation Date: 05/10/20 07:00 Pre-Op Diagnosis: Left Knee Degenerative Joint Disease Post-Op Diagnosis: Left Knee Degenerative Joint Disease I identified the patient and participated in the time-out.: Yes Procedure Operation Date: 05/10/20 07:00 Actual Procedures p Left Total Knee Arthroplasty(Left) - Andrea Lugo MD Surgeon Andrea Lugo M.D. Contact Center Manager chago- fellow/alvaro RAMON Estimated Blood Loss 75 Findings Consistent with Post-Op Diagnosis Specimens bone and soft tissue Drains None Anesthesia Type Spinal MAC Complications none Disposition Accompanied Patient To Recovery: Yes Disposition: Recovery Room Description of Procedure Patient was taken to the operating room, placed under spinal anesthesia, time out performed. Peripheral nerve block performed preoperatively. Patient was prepped and draped in routine sterile fashion. I was present during the entire case and assisted with positioning, draping, tissue retraction, hardware implantation, closure and dressings, please see Dr. Lugo's operative report for further detail regarding the procedure. Patient was awakened and taken to the recovery room in stable condition. I attest to the content of the Intraoperative Record and any orders documented therein. Any exceptions are noted below.
--- NOTE | 2020-05-10 08:45 | Progress Notes ---
DATE: 05/10/2020 SUBJECTIVE: Status post left total knee replacement. The patient is doing well. His vital signs are stable. He is afebrile. Denies chest pain, shortness of breath, fever, chills, nausea, vomiting or headache. Neurovascular check is limited by spinal. Wound dressing clean, dry and intact. X-ray is pending. ASSESSMENT: Doing well status post left total knee replacement. Continue with postop care pathway and protocol. Discharge tomorrow if he does well overnight.
--- NOTE | 2020-05-10 08:51 | Operative Report (OR) ---
DATE OF OPERATION: 05/10/2020 SURGEON: Andrea Lugo MD. DOOR MACHINE OPERATOR: Johanne. SECOND DOOR MACHINE OPERATOR: Miguel. PREOPERATIVE DIAGNOSES: Left knee osteoarthritis with varus flexion deformity. POSTOPERATIVE DIAGNOSES: Left knee osteoarthritis with varus flexion deformity. OPERATION PERFORMED: Cemented left total knee replacement. SUMMARY OF IMPLANTS: Size 5 left posterior cruciate substituting femur, size 5 mobile bearing tray, size 41 patella, size 5 x 10 RP stabilized insert, 2 bags of Palacos G cement. BONE PATHOLOGY: Pending. ESTIMATED BLOOD LOSS: 75 mL. CRYSTALLOID: Per anesthesia. DVT prophylaxis per protocol. PERIOPERATIVE SITUATION: Medically cleared male with intractable left knee pain. Physical exam and x-ray consistent with significant medial compartment and patellofemoral compartment disease. He has failed conservative management for years, at this point in time wants to proceed with surgical treatment. DESCRIPTION OF OPERATIVE PROCEDURE: The patient was appropriately identified, site verified, consent verified. Antibiotics confirmed as being given. The left lower extremity was prepped and draped in usual routine fashion. Tourniquet inflated to 300 mmHg after exsanguination of limb with a rubber Esmarch bandage for a total of roughly 52 minutes. Midline exposure was utilized. Parapatellar arthrotomy was performed. Synovectomy completed, osteophytes resected. Distal femur entered. Cruciates resected. Tibia subluxated, medial and lateral menisci resected. The distal femur resected 14 mm, proximal tibia resected 4 mm, the extension gap was excellent. The femur was then sized between a 6 and a 5, it was measured 6, cut 5, no notching occurred. Flexion gap was then checked and it was excellent. The box cut was then made and the size 5 fit well. Tibia was then broached and reamed to a size 5 and a 10 mm spacer offered full extension, full flexion and good mid range stability. Patella tracked well. The patella was then resected leaving 15 mm and a 41 button trial hole was drilled and then seated. It tracked well. The knee was then injected with Orthomix throughout the whole knee including posteriorly. The wound was then irrigated after all implants were removed with Betadine and Pulsavac and then the permanent cemented in position, tibia, femur and patella in that order. At 12 minutes, the tourniquet was deflated. Minor bleeding points were controlled with electrocautery. At 14 minutes, the knee was flexed. No major cement removal was required. The knee was then irrigated one final time. The permanent liner seated, knee reduced and closed at 30-40 degrees of flexion with #2 Vicryl, 2-0 Vicryl and stainless steel clips. Appropriate dressing applied. The patient was transferred to recovery room in satisfactory condition having tolerated the procedure well. The pathology is pending on bone. I attest to the content of the Intraoperative Record and any orders documented therein. Any exception s are noted below.
--- NOTE | 2020-05-10 08:55 | Discharge Summary (DS) ---
DATE OF DISCHARGE: 05/11/2020. CHIEF COMPLAINT: Left knee pain. HISTORY OF PRESENT ILLNESS: The patient underwent elective left total knee replacement. Hospital course has been uneventful. At this point in time, he denies any review of systems issues. No chest pain, shortness of breath, fever, chills, nausea, vomiting or headache. PREADMISSION MEDICATIONS: Please see medication reconciliation sheet, nothing has changed, adding some Coumadin, keep INR 1.8-2.2 and p.r.n. pain medication per choice. Prescription given in the AUG. PAST MEDICAL HISTORY: Remarkable for asthma, anxiety, chronic sinusitis, COPD, degenerative disk disease, erectile dysfunction, frequent PVCs, GERD, gout, hepatitis B. Subsequent testing negative, history of diverticulitis of colon, history of Hodgkin lymphoma 30 years ago, osteoarthritis, solitary pulmonary nodule, thyroid nodule, tremor, vitamin D deficiency. PAST SURGICAL HISTORY: Includes appendectomy, arthroscopies of the knee, shoulder, back surgery, colonoscopy, cyst removals, EGDs, spinal fusion, splenectomy, sternotomy, cartilage deformity of his chest, status post right knee replacement. FAMILY HISTORY: Remarkable for diabetes, dementia, lung cancer, colonic polyps, asthma, hypertension. Denies family history of ovarian, prostate, or breast cancers. SOCIAL HISTORY: Reveals that he is a former smoker, quit 15 years ago, 2-pack per day history smoked for 14 years, quit 30 years ago, secondhand exposure. No ETOH, socially only. Speaks [place], lives and feels safe. He is single. He is employed. REVIEW OF SYSTEMS: As above. ASSESSMENT: Postop left total knee replacement. Continue with care pathway. Discharge to home tomorrow if he does well overnight.
--- NOTE | 2020-05-10 08:57 | XRay Report ---
XR knee LT 1 or 2V routine HISTORY: 59 years-old Male S/P L TKA left knee total joint arthroplasty COMPARISON: Left knee radiographs 04/08/2020 TECHNIQUE: 2 views of the left knee FINDINGS: Left knee total joint arthroplasty and patella resurfacing. Anterior skin davis are noted along wit h expected postsurgical soft tissue swelling and deep tissue air. Surgical drainage catheter. No unex pected opaque foreign body. No acute fracture or malalignment. IMPRESSION: Left knee total joint arthroplasty and patella resurfacing with expected postoperative ch anges. ACT 112: Negative or not required by law. The above report was generated using voice recognition software. It may contain grammatical, syntax o r spelling errors. Electronically signed by: Denis Paige M.D. 05/10/2020 8:56 AM
[2020-05-10] MEDS ORDERED: VANCOMYCIN HCL 1,500 MG in SODIUM CHLORIDE 0.9% 250 ML IV ONE (09:00)
--- NOTE | 2020-05-10 09:09 | Operative Report ---
Post Operative Report Pre & Post Diagnosis Operation Date: 05/10/20 07:00 Pre-Op Diagnosis: Left Knee Degenerative Joint Disease Post-Op Diagnosis: Left Knee Degenerative Joint Disease I identified the patient and participated in the time-out.: Yes Procedure Operation Date: 05/10/20 07:00 Actual Procedures p Left Total Knee Arthroplasty(Left) - Andrea Lugo MD Surgeon Andrea uLgo Metal Flow Coordinator chago- fellow/alvaro RAMON Estimated Blood Loss 75 Findings Consistent with Post-Op Diagnosis Specimens bone cuts Anesthesia Type Spinal MAC Complications none Disposition Accompanied Patient To Recovery: Yes Disposition: Recovery Room Description of Procedure as per 's note, i Assisted in prepping and draping instruments handling certain parts of the procedure and wound closure I attest to the content of the Intraoperative Record and any orders documented therein. Any exceptions are noted below.
[2020-05-10] MEDS ORDERED: VANCOMYCIN HCL 1,500 MG in SODIUM CHLORIDE 0.9% 500 ML IV ONE (09:15)
[2020-05-10] MEDS ORDERED: NALOXONE HCL 0.4 MG/1 ML VIAL/CARP IV PRN (09:52)
[2020-05-10] MEDS ORDERED: TAMSULOSIN HCL 0.4 MG CAP PO PRN (09:52)
[2020-05-10] MEDS ORDERED: SODIUM CHLORIDE 0.9% 1000ML 1,000 ML IV SCH (09:52)
[2020-05-10] MEDS ORDERED: METOCLOPRAMIDE HCL INJ 5 MG/ML 2 ML VIAL IV PRN (09:52)
[2020-05-10] MEDS ORDERED: LORazepam 0.5 MG TAB PO PRN (09:52)
[2020-05-10] MEDS ORDERED: CYCLOBENZAPRINE HCL 5 MG TAB PO PRN (09:52)
[2020-05-10] MEDS ORDERED: bisacodyL 10 MG SUPP PR PRN (09:52)
[2020-05-10] MEDS ORDERED: ALUMINUM/MAGNESIUM SUSP 30 ML UDC PO PRN (09:52)
[2020-05-10] MEDS ORDERED: MAGNESIUM HYDROXIDE SUSP 30 ML UDC PO PRN (09:52)
[2020-05-10] MEDS ORDERED: diphenhydrAMINE 50 MG/ML VIAL IV PRN (09:52)
--- NOTE | 2020-05-10 10:38 | Anesthesiology Progress Note ---
Date of Service May 10, 2020 Anesthesia Post Procedure Vital Signs Vital Signs: Temp Pulse Pulse Resp BP Pulse Ox 05/10/20 10:04 36.5 C 55 L 18 117/73 98 05/10/20 09:15 64 16 107/66 95 05/10/20 09:00 36.4 C L 56 L 15 103/71 95 05/10/20 08:50 52 L 17 118/66 95 05/10/20 08:40 64 15 102/63 94 05/10/20 08:30 36.4 C L 62 16 108/67 95 05/10/20 05:55 61 18 125/78 97 05/10/20 05:15 36.9 C 60 20 119/87 98 Transfer of Care Handoff Completed per policy Notes Mental Status: alert / awake / arousable and participated in evaluation Patient Amnestic to Procedure: Yes Nausea / Vomiting: adequately controlled Pain: adequately controlled Airway Patency, RR, SpO2: stable & adequate BP & HR: stable & adequate Hydration State: stable & adequate Neuraxial Anesthesia: was administered and sensory block is resolving Anesthetic Complications: no major complications apparent and Pt Satisfied with anesthetic care
[2020-05-10] MEDS: BUDESONIDE 0.5 MG/2 ML VIAL (PULMICORT) INH SCH ×2 (10:41→19:44)
[2020-05-10] MEDS: FLUTICASONE PROPIONATE NA SPR 16 GM BTL SCH ×2 (10:56→20:09)
[2020-05-10] MEDS: GABAPENTIN 400 MG CAP PO SCH ×3 (10:56→20:13)
[2020-05-10] MEDS: DULoxetine HCL 30 MG CAP PO SCH (10:56)
[2020-05-10] MEDS: PANTOprazole 40 MG TAB PO SCH (10:56)
[2020-05-10] MEDS: KETOROLAC 30 MG/ML VIAL IV SCH ×3 (10:58→23:36)
[2020-05-10] MEDS: DOCUSATE SODIUM 100 MG CAP PO SCH ×2 (10:58→20:13)
[2020-05-10] MEDS: MULTIVITAMIN TAB PO SCH (10:58)
[2020-05-10] MEDS ORDERED: ALBUTEROL HFA 8 GM INHALER INH PRN (13:00)
[2020-05-10] MEDS: ACETAMINOPHEN 500 MG TAB PO SCH ×2 (13:54→22:18)
[2020-05-10] MEDS ORDERED: ORTHO WARFARIN NOMOGRAM SCH (14:00)
[2020-05-10] MEDS: oxyCODONE HCL IR 5 MG TAB (IMMEDIATE RELEASE) PO PRN ×2 (14:07→20:03)
[2020-05-10] MEDS: ceFAZolin 2000MG 2,000 MG/15 ML SYR IV SCH ×2 (14:25→22:18)
[2020-05-10] MEDS ORDERED: TRANEXAMIC ACID / 0.7% NACL 1,000 MG/100 ML BAG IV SCH (14:30)
--- NOTE | 2020-05-10 15:05 | Progress Notes ---
DATE: 05/10/2020 He was seen this afternoon. Has some urinary distention and was waiting to get to the bathroom. Applied his knee immobilizer. His femoral sciatic nerve function was excellent. His wound dressing clean, dry, and intact. He is able to lift his leg. He is able to stand and walk. He went to the bathroom and will try to void. We will discontinue his IV fluids. Potential discharge probably for tomorrow high.
[2020-05-10] MEDS ORDERED: WARFARIN SOD 5 MG TAB PO ONE (16:00)
[2020-05-10] MEDS: AZELASTINE: ORDER AWAITING ACTION SCH (16:57)
[2020-05-10] MEDS ORDERED: ATORVASTATIN 10 MG TAB PO SCH (21:00)
[2020-05-10] MEDS ORDERED: SENNA 8.6 MG TAB PO SCH (21:00)
[2020-05-10] MEDS ORDERED: FLUTICASONE/VILANTEROL 200/25MCG 14 PUFFS/INHALER INH SCH (21:00)
[2020-05-10] MEDS ORDERED: MONTELUKAST SODIUM 10 MG TABLET PO SCH (21:00)
[2020-05-10] MEDS: HYDROmorphone INJ 0.5 MG/0.5 ML SYR IV PRN (23:36)
[2020-05-11] MEDS: AZELASTINE: ORDER AWAITING ACTION SCH ×2 (00:14→07:53)
[2020-05-11] MEDS: oxyCODONE HCL IR 5 MG TAB (IMMEDIATE RELEASE) PO PRN ×2 (00:47→07:57)
[2020-05-11] MEDS: KETOROLAC 30 MG/ML VIAL IV SCH (05:22)
[2020-05-11] MEDS: ACETAMINOPHEN 500 MG TAB PO SCH (05:22)
[2020-05-11 05:58] LABS: Hematocrit (blood only) 37.2 % (42-52); Hemoglobin 12.4 g/dL (14.0-18.0); Mean Corpuscular Hemoglobin 31.8 pg (25-34); Mean Corpuscular Hgb Conc 33.3 g/dL (32-36); Mean Corpuscular Volume 95.4 fL (80-100); Mean Platelet Volume 9.7 fL (7.4-10.4); Platelet Count 257 K/uL (130-400); RDW Coefficient of Variation 13.5 % (11.5-14.5); RDW Standard Deviation 46.9 fL (36.4-46.3); White Blood Count 13.08 K/uL (4.8-10.8)
[2020-05-11 06:24] LABS: BUN Creatinine Ratio 20.6 (10-20); Calcium 8.6 mg/dl (8.5-10.1); Creatinine Clr Calc Pharmacy 107.2 ml/min; Est GFR (African American) 110.3; Est GFR (Non-African American) 95.2; Potassium 3.9 mmol/L (3.5-5.1)
[2020-05-11 06:27] LABS: INR 1.1 (0.9-1.1); Prothrombin Time 11.4 Seconds (9.0-12.0)
[2020-05-11] MEDS: BUDESONIDE 0.5 MG/2 ML VIAL (PULMICORT) INH SCH (07:37)
[2020-05-11] MEDS: FLUTICASONE PROPIONATE NA SPR 16 GM BTL SCH (07:58)
[2020-05-11] MEDS: MULTIVITAMIN TAB PO SCH (07:59)
[2020-05-11] MEDS: DULoxetine HCL 30 MG CAP PO SCH (07:59)
[2020-05-11] MEDS: GABAPENTIN 400 MG CAP PO SCH (07:59)
[2020-05-11] MEDS: PANTOprazole 40 MG TAB PO SCH (07:59)
[2020-05-11] MEDS ORDERED: dexAMETHasone 10 MG in SYRINGE 0 ML IV SCH (08:00)
--- NOTE | 2020-05-11 08:16 | Progress Notes ---
DATE: 05/11/2020 SUBJECTIVE: Status post left total knee replacement, postop day #1. The patient is doing well, has no real major issues. Pain is well managed. He is up ambulating, eating, drinking, voiding. OBJECTIVE: Vital signs are stable. He is afebrile. Hematocrit stable at 37 range. INR is 1.1. We will receive Coumadin per nomogram. Discharge on 4 mg. Check INR again on Saturday. ASSESSMENT AND PLAN: Doing well status post left total knee replacement. Discharge to home today.
[2020-05-11] MEDS: DOCUSATE SODIUM 100 MG CAP PO SCH (08:17)
[2020-05-11] MEDS: HYDROmorphone INJ 0.5 MG/0.5 ML SYR IV PRN (10:38)
[2020-05-11] MEDS ORDERED: WARFARIN SOD 5 MG TAB PO SCH (16:00)
== END 2020-05-11 11:23 | disposition home health service (06) ==
LOC: ASU 05:03 → 3W 05:03